=== PATIENT | female | born 1935 | race Caucasian/White ===

== ENCOUNTER → 2017-04-10 | Outpatient (REF) | payer MEDICARE ==
[~2017-04-10] MED LIST: DIGO0.12 PO; ELIQ5TAB PO; FISH120012 PO; LASI40TA PO; METO25TAB PO; OMEP40CA2 PO; VITA500T3 PO; VITMTA PO
== END ==
LOC: M LAB REF 12:44
PROVIDERS: ATTEND Internal Medicine
DX: R60.0 Localized edema (principal)

== ENCOUNTER → 2018-01-29 | Outpatient (REF) | payer OTHER ==
[2018-01-29 19:52] LABS: PHOSPHORUS LEVEL 4.3 MG/DL (2.5-4.9)
== END ==
LOC: M LAB REF 17:22
DX: I48.0 Paroxysmal atrial fibrillation (principal); R60.0 Localized edema

== ENCOUNTER → 2018-04-29 | Outpatient (CLI) | payer MEDICARE | LOC: M RAD 10:40 | DX: Z12.31 Encounter for screening mammogram for malignant neoplasm of breast (principal); N63.10 Unspecified lump in the right breast, unspecified quadrant | CPT/HCPCS: 77067 ==

== ENCOUNTER → 2018-05-09 | Outpatient (CLI) | payer MEDICARE | LOC: M RAD 09:20 | DX: N60.01 Solitary cyst of right breast (principal) | CPT/HCPCS: 77065 ==

== ENCOUNTER → 2018-06-07 | Outpatient (REF) | payer MEDICARE ==
[2018-06-07 13:52] LABS: TROPONIN I < 0.02 NG/ML (< 0.10)
== END ==
LOC: M LAB REF 13:15
DX: I50.32 Chronic diastolic (congestive) heart failure (principal)
CPT/HCPCS: 84484

== ENCOUNTER → 2018-08-07 | Outpatient (CLI) | payer MEDICARE ==
[2018-08-07 09:59] LABS: ALBUMIN 3.6 GM/DL (3.2-5.2); ALBUMIN/GLOBULIN RATIO 1.03 (1.00-1.93); ALKALINE PHOSPHATASE 76 U/L (45-117); ALT/SGPT 18 U/L (12-78); ANION GAP 9 MEQ/L (8-16); AST/SGOT 14 U/L (7-37); BILIRUBIN,TOTAL 0.3 MG/DL (0.2-1.0); BLOOD UREA NITROGEN 24 MG/DL (7-18); CALCIUM LEVEL 9.5 MG/DL (8.8-10.2); CARBON DIOXIDE LEVEL 26 MEQ/L (21-32); CHLORIDE LEVEL 107 MEQ/L (98-107); CREATININE FOR GFR 1.17 MG/DL (0.55-1.30); GLOMERULAR FILTRATION RATE 47.3 (>32); GLUCOSE, FASTING 119 MG/DL (70-100); POTASSIUM SERUM 4.8 MEQ/L (3.5-5.1); SODIUM LEVEL 142 MEQ/L (136-145); TOTAL PROTEIN 7.1 GM/DL (6.4-8.2)
== END ==
LOC: M LAB 08:16
DX: I48.0 Paroxysmal atrial fibrillation (principal)
CPT/HCPCS: 80053

== ENCOUNTER → 2018-09-23 | Outpatient (REF) | payer MEDICARE | LOC: M LAB REF 16:22 | DX: D51.9 Vitamin B12 deficiency anemia, unspecified (principal) | CPT/HCPCS: 82607 ==

== ENCOUNTER 2018-11-08 08:42 | Emergency (ER) | payer MEDICARE ==
[2018-11-08] MEDS: MECLIZINE 25 MG TABLET PO (09:25)
[2018-11-08] MEDS: ACETAMINOPHEN 325 MG TAB PO (09:25)
[2018-11-08 09:44] LABS: BASO % 0.5 % (0.0-1.0); EOS % 0.5 % (0.0-3.0); HEMATOCRIT 39.6 % (36.0-47.0); HEMOGLOBIN 13.1 g/dl (12.0-15.5); IMMATURE GRANULOCYTE % 0.3 % (0-3.0); LYMPH # 1.9 10^3/uL (1.5-4.5); LYMPH % 28.9 % (24.0-44.0); MEAN CORPUSCULAR HEMOGLOBIN 29.3 pg (27.0-33.0); MEAN CORPUSCULAR HGB CONC 33.1 g/dl (32.0-36.5); MEAN CORPUSCULAR VOLUME 88.6 fl (80.0-96.0); MONO # 0.5 10^3/uL (0.0-0.8); MONO % 7.4 % (0.0-5.0); NEUTROPHILS # 4.1 10^3/uL (1.8-7.7); NEUTROPHILS % 62.4 % (36.0-66.0); PLATELET COUNT, AUTOMATED 263 10^3/uL (150-450); RED BLOOD COUNT 4.47 10^6/uL (4.00-5.40); RED CELL DISTRIBUTION WIDTH 13.2 % (11.5-14.5); WHITE BLOOD COUNT 6.5 10^3/uL (4.0-10.0)
[2018-11-08 10:23] LABS: ALBUMIN 3.7 GM/DL (3.2-5.2); ALBUMIN/GLOBULIN RATIO 0.86 (1.00-1.93); ALKALINE PHOSPHATASE 85 U/L (45-117); ALT/SGPT 18 U/L (12-78); ANION GAP 7 MEQ/L (8-16); AST/SGOT 16 U/L (7-37); BILIRUBIN,DIRECT 0.1 MG/DL (0.0-0.2); BILIRUBIN,TOTAL 0.3 MG/DL (0.2-1.0); BLOOD UREA NITROGEN 15 MG/DL (7-18); CALCIUM LEVEL 9.6 MG/DL (8.8-10.2); CARBON DIOXIDE LEVEL 27 MEQ/L (21-32); CHLORIDE LEVEL 105 MEQ/L (98-107); CK-MB VALUE MASS < 1.0 NG/ML (<3.6); CPK CREATINE PHOSPHOKINASE 81 U/L (26-192); CREATININE FOR GFR 1.16 MG/DL (0.55-1.30); GLOMERULAR FILTRATION RATE 47.6 (>32); GLUCOSE, FASTING 111 MG/DL (70-100); MB/CK RELATIVE INDEX 1.23 (< OR =4); POTASSIUM SERUM 4.4 MEQ/L (3.5-5.1); SODIUM LEVEL 139 MEQ/L (136-145); THYROID STIMULATING HORMONE 0.606 uIU/ML (0.358-3.740); TROPONIN I < 0.02 NG/ML (< 0.10)
[2018-11-08] MEDS ORDERED: ATENOLOL 25 MG TAB PO (11:30)
[2018-11-08] MEDS: OMEPRAZOLE 20 MG CAP PO (11:37)
[2018-11-08] MEDS: ATENOLOL 25 MG TAB PO (11:40)
[2018-11-08 11:56] LABS: INFLUENZA A AMPLIFICATION NEGATIVE (NEGATIVE); INFLUENZA B AMPLIFICATION NEGATIVE (NEGATIVE)
[2018-11-08] MEDS: MIDODRINE 2.5 MG TAB PO (12:31)
[2018-11-08 13:32] LABS: CK-MB VALUE MASS < 1.0 NG/ML (<3.6); CPK CREATINE PHOSPHOKINASE 70 U/L (26-192); MB/CK RELATIVE INDEX 1.43 (< OR =4); TROPONIN I < 0.02 NG/ML (< 0.10)
== END 2018-11-08 14:45 | disposition home or self-care (01) ==
LOC: M ED 08:42
DX: H81.399 Other peripheral vertigo, unspecified ear (principal); I44.4 Left anterior fascicular block; I48.91 Unspecified atrial fibrillation; I25.10 Atherosclerotic heart disease of native coronary artery without angina pectoris; I10 Essential (primary) hypertension; K44.9 Diaphragmatic hernia without obstruction or gangrene; Z79.899 Other long term (current) drug therapy; Z88.0 Allergy status to penicillin
CPT/HCPCS: 71046

== ENCOUNTER → 2021-07-01 | Outpatient (CLI) | payer MEDICARE ==
[~2021-07-01] MED LIST changes: +ATEN25TA PO; +CYAN500T14 PO; -LASI40TA PO; +LASI40TA9 PO; +MECL1TAB31 PO; +METO25TA4 PO; -METO25TAB PO; +MIDO2.5T PO; -OMEP40CA2 PO; +OMEP40CA4 PO; -VITA500T3 PO; +XARE15TA PO
--- NOTE | 2021-07-01 09:38 | REPMRS ---
Patient History The patient states she has not had a clinical breast exam in over a year. Patient states no breast complaints today. Patient has signed MRS History Sheet. Digital Woman Screen Mammo: July 01, 2021 - Exam #: [id number] Bilateral CC and MLO view(s) were taken. Technologist: Bhumika Burt, Technologist Prior study comparison: June 08, 2020, bilateral digital mammo screening bilat, performed at [facility]. May 09, 2018, right breast digital mammo diagnostic unilateral, performed at [facility]. April 29, 2018, bilateral digital mammo screening bilat, performed at [facility]. FINDINGS: There are scattered fibroglandular densities. The Volpara volumetric breast density category is:B. There is a needle biopsy marker clip noted in the right breast. There has been no change in the appearance of the mammogram from the prior studies. There is a mild amount of scattered fibroglandular density which is fairly symmetric. There is no interval development of dominant mass, architectural distortion, or grouped microcalcification suggestive of malignancy. 3-D tomosynthesis shows no additional findings. Assessment: BI-RADS/ACR category 2 mammogram. Benign Findings. Recommendation Routine screening mammogram of both breasts in 1 year (for women over age 40). This patient's [facility] Lifetime Breast Cancer Risk is estimated at 0.3 %. This mammogram was interpreted with the aid of an FDA-approved computer-aided dectection system. Electronically Signed By: Baisl Wallace MD 07/01/21 0938
== END ==
LOC: M WHC 08:22
PROVIDERS: ATTEND Internal Medicine
DX: Z12.31 Encounter for screening mammogram for malignant neoplasm of breast (principal)

== ENCOUNTER → 2021-11-07 | Outpatient (REF) | payer MEDICARE | LOC: M LAB REF 16:32 | PROVIDERS: ATTEND Internal Medicine | DX: I48.0 Paroxysmal atrial fibrillation (principal); Z79.01 Long term (current) use of anticoagulants ==

== ENCOUNTER → 2022-01-31 | Outpatient (REF) | payer MEDICARE | LOC: M LAB REF 16:25 | PROVIDERS: ATTEND Internal Medicine | DX: I50.32 Chronic diastolic (congestive) heart failure (principal); I48.0 Paroxysmal atrial fibrillation ==

== ENCOUNTER → 2022-12-28 | Outpatient (CLI) | payer MEDICARE ==
[~2022-12-28] MED LIST changes: +ATOR80TA59 PO; +CLOP75TA2 PO; +DIGO0.123 PO; +LISI2.5T9 PO
== END ==
LOC: M LABSMTC 10:31
PROVIDERS: ATTEND Anesthesiology
DX: Z01.812 Encounter for preprocedural laboratory examination (principal); Z20.822 Contact with and (suspected) exposure to COVID-19

== ENCOUNTER 2023-01-01 09:40 | Day surgery (SDC) | payer MEDICARE ==
[~2023-01-01] VITALS: Ht 165.1 cm; Wt 66.7 kg
[~2023-01-01 09:40] MED LIST changes: +NS 1,000 ML IV ONE
[2023-01-01] MEDS ORDERED: LIDOCAINE 2% 100MG/5ML SDV (FOR ANES.) As Ordered ONE (11:31)
[2023-01-01] MEDS ORDERED: propofoL 200 MG/20 ML VIAL As Ordered ONE ×2 (11:31→12:36)
[2023-01-01 13:10] VITALS: BP 129/94
== END 2023-01-01 13:47 | disposition home or self-care (01) ==
LOC: M OPP 09:40
PROVIDERS: ATTEND Internal Medicine Gastroenterology
DX: R19.5 Other fecal abnormalities (principal); D12.3 Benign neoplasm of transverse colon; K57.30 Diverticulosis of large intestine without perforation or abscess without bleeding; K64.8 Other hemorrhoids; E78.00 Pure hypercholesterolemia, unspecified; I11.0 Hypertensive heart disease with heart failure; I25.10 Atherosclerotic heart disease of native coronary artery without angina pectoris; I25.2 Old myocardial infarction; I35.0 Nonrheumatic aortic (valve) stenosis; I48.0 Paroxysmal atrial fibrillation; I50.42 Chronic combined systolic (congestive) and diastolic (congestive) heart failure; R94.31 Abnormal electrocardiogram [ECG] [EKG]; Z79.01 Long term (current) use of anticoagulants; Z95.5 Presence of coronary angioplasty implant and graft; Z90.710 Acquired absence of both cervix and uterus

== ENCOUNTER → 2023-11-01 | Outpatient (CLI) | payer MEDICARE ==
[~2023-11-01] MED LIST changes: +MECL-209 PO; -MECL1TAB31 PO; -NS 1,000 ML IV ONE
== END ==
LOC: M RAD 11:00
PROVIDERS: ATTEND Internal Medicine
DX: I48.0 Paroxysmal atrial fibrillation (principal); I50.32 Chronic diastolic (congestive) heart failure; I73.9 Peripheral vascular disease, unspecified

== ENCOUNTER → 2024-05-19 | Outpatient (CLI) | payer MEDICARE | LOC: M WUC 08:56 | PROVIDERS: ATTEND Student in an Organized Health Care Education/Training Program | DX: M19.072 Primary osteoarthritis, left ankle and foot (principal); R22.42 Localized swelling, mass and lump, left lower limb ==

== ENCOUNTER → 2024-06-19 | Outpatient (CLI) | payer MEDICARE | LOC: M WHC 12:46 | PROVIDERS: ATTEND Nurse Practitioner Family | DX: M79.662 Pain in left lower leg (principal); R60.9 Edema, unspecified ==

== ENCOUNTER → 2024-06-23 | Outpatient (CLI) | payer MEDICARE ==
[2024-06-23 09:15] LABS: HEMOGLOBIN 11.9 g/dl (12.0-15.5); MEAN CORPUSCULAR HEMOGLOBIN 29.3 pg (27.0-33.0); MEAN CORPUSCULAR HGB CONC 32.2 g/dl (32.0-36.5); MEAN CORPUSCULAR VOLUME 91.1 fl (80.0-96.0); PLATELET COUNT, AUTOMATED 249 10^3/uL (150-450); RED BLOOD COUNT 4.06 10^6/uL (4.00-5.40); WHITE BLOOD COUNT 7.1 10^3/uL (4.0-10.0)
== END ==
LOC: M LAB 08:21
PROVIDERS: ATTEND Physician Assistant
DX: I48.0 Paroxysmal atrial fibrillation (principal)

== ENCOUNTER → 2024-07-08 | Outpatient (REF) | payer MEDICARE | LOC: M LAB REF 16:24 | PROVIDERS: ATTEND Internal Medicine | DX: I48.0 Paroxysmal atrial fibrillation (principal) ==

== ENCOUNTER 2025-02-08 03:51 | Emergency (ER) | payer MEDICARE ==
[~2025-02-08] VITALS: Ht 165.1 cm; Wt 70.5 kg
[~2025-02-08 03:51] MED LIST changes: -MIDO2.5T PO; +MIDO2.5T3 PO
[2025-02-08 04:28] LABS: BASO # 0.1 10^3/uL (0.0-0.2); BASO % 0.8 % (0.0-1.0); EOS # 0.2 10^3/uL (0.0-0.5); EOS % 2.3 % (0.0-3.0); HEMATOCRIT 39.5 % (36.0-47.0); HEMOGLOBIN 12.8 g/dl (12.0-15.5); LYMPH # 2.9 10^3/uL (1.5-5.0); LYMPH % 36.8 % (24.0-44.0); MEAN CORPUSCULAR HEMOGLOBIN 30.3 pg (27.0-33.0); MEAN CORPUSCULAR HGB CONC 32.4 g/dl (32.0-36.5); MEAN CORPUSCULAR VOLUME 93.6 fl (80.0-96.0); MONO # 0.8 10^3/uL (0.0-0.8); MONO % 9.7 % (2.0-8.0); NEUTROPHILS # 3.9 10^3/uL (1.5-8.5); NEUTROPHILS % 50.1 % (36.0-66.0); PLATELET COUNT, AUTOMATED 223 10^3/uL (150-450); RED BLOOD COUNT 4.22 10^6/uL (4.00-5.40); WHITE BLOOD COUNT 7.8 10^3/uL (4.0-10.0)
[2025-02-08 04:50] LABS: D-DIMER QUANT < 0.27 ug/mL (<0.5); PROTHROMBIN TIME 18.3 SECONDS (12.5-14.5)
[2025-02-08 04:51] LABS: CK-MB VALUE MASS 1.7 NG/ML (<3.6)
[2025-02-08 04:53] LABS: ALBUMIN 3.6 G/DL (3.2-5.2); BILIRUBIN,DIRECT 0.2 MG/DL (<0.4); BILIRUBIN,TOTAL 0.4 MG/DL (0.3-1.2); CALCIUM LEVEL 9.4 MG/DL (8.3-10.6); CREATININE FOR GFR 1.09 MG/DL (0.55-1.30); GLOMERULAR FILTRATION RATE 50.4 (>32); POTASSIUM SERUM 4.3 MMOL/L (3.5-5.1)
[2025-02-08 04:58] LABS: MB/CK RELATIVE INDEX 0.99 (< OR =4)
[2025-02-08 05:31] VITALS: TEMP 98
[2025-02-08] MEDS: MAALOX 30 ML SUSP *UDC PO ONE (07:21)
[2025-02-08] MEDS: MORPHINE 2 MG/ML 1ML VIAL IV PRN (07:23)
[2025-02-08] MEDS: ONDANSETRON 4MG 2ML VIAL IV ONE (07:25)
[2025-02-08] MEDS ORDERED: ISOVUE-370 76% 100ML VIAL As Ordered ONE (07:28)
[2025-02-08 08:02] LABS: DIGOXIN LEVEL 0.6 NG/ML (0.8-2.0)
[2025-02-08 08:07] LABS: CK-MB VALUE MASS 1.1 NG/ML (<3.6); MB/CK RELATIVE INDEX 0.61 (< OR =4)
[2025-02-08 09:30] VITALS: BP 136/79
[2025-02-08] MEDS ORDERED: OMEP40CA4 PO (09:30)
[2025-02-08] MEDS ORDERED: CARA1TAB6 PO (09:31)
[2025-02-08 09:32] VITALS: O2SAT 93
== END 2025-02-08 10:09 | disposition home or self-care (01) ==
LOC: M ED 03:51
DX: R07.9 Chest pain, unspecified (principal); K44.9 Diaphragmatic hernia without obstruction or gangrene; K59.00 Constipation, unspecified; K57.30 Diverticulosis of large intestine without perforation or abscess without bleeding; M47.9 Spondylosis, unspecified; I48.91 Unspecified atrial fibrillation; I25.2 Old myocardial infarction; I10 Essential (primary) hypertension; K21.9 Gastro-esophageal reflux disease without esophagitis; F10.10 Alcohol abuse, uncomplicated; Z88.0 Allergy status to penicillin; Z88.8 Allergy status to other drugs, medicaments and biological substances; Z86.79 Personal history of other diseases of the circulatory system; Z79.02 Long term (current) use of antithrombotics/antiplatelets; Z79.899 Other long term (current) drug therapy
CPT/HCPCS: 71045; 71275; 74177; 80053; 80162; 82248; 82550; 82553; 83690; 84484; 85025; 85379; 85610; 93005; 93041; 94760; 96374; 96375; 99285; J2405; Q9967

== ENCOUNTER → 2025-03-16 | Outpatient (CLI) | payer MEDICARE ==
[~2025-03-16] MED LIST changes: +CARA1TAB6 PO
== END ==
LOC: M WHC 09:36
PROVIDERS: ATTEND Internal Medicine
DX: R52 Pain, unspecified (principal)

== ENCOUNTER → 2025-08-20 | Outpatient (CLI) | payer MEDICARE | LOC: M WHC 07:51 | PROVIDERS: ATTEND Internal Medicine | DX: Z12.31 Encounter for screening mammogram for malignant neoplasm of breast (principal); M85.89 Other specified disorders of bone density and structure, multiple sites; R92.323 Mammographic fibroglandular density, bilateral breasts ==